=== PATIENT | male | born 1985 | race Caucasian/White ===

== ENCOUNTER 2022-07-17 13:19 | Emergency (ER) | payer MEDICAID ==
[~2022-07-17] VITALS: Ht 180.3 cm; Wt 80.0 kg
[2022-07-17] MEDS ORDERED: SODIUM CHLORIDE 0.9% 1,000 ML IV ONE (21:45)
[2022-07-17 23:29] VITALS: BP 114/90
== END 2022-07-17 23:47 | disposition home or self-care (01) ==
LOC: ER 13:36
DX: F10.129 Alcohol abuse with intoxication, unspecified (principal); Y90.9 Presence of alcohol in blood, level not specified
CPT/HCPCS: 96360; 99283; J7030; Z7610